=== PATIENT | female | born 1950 | race Caucasian/White ===

== ENCOUNTER 2021-05-01 22:34 | Inpatient (IN) | payer MEDICARE ==
[~2021-05-01] VITALS: Ht 157.5 cm; Wt 65.4 kg
[2021-05-02] MEDS ORDERED: CARDIZEM 30MG T30 MG PO (00:31)
[2021-05-02] MEDS ORDERED: BUMETANIDE1 MG PO (00:31)
[2021-05-02] MEDS ORDERED: ALBUTEROL2.5 MG/3 M INH (00:31)
[2021-05-02] MEDS ORDERED: ISOSORBIDE MONO30 MG PO (00:32)
[2021-05-02] MEDS ORDERED: PROTONIX 40 MG40 M1 PO (00:32)
[2021-05-02] MEDS ORDERED: SODIUM BICARBO650 MG PO (00:32)
[2021-05-02] MEDS ORDERED: METOPROLOL SUC100 MG PO (00:32)
[2021-05-02] MEDS ORDERED: WARFARIN SODIUM1 MG PO (00:33)
[2021-05-02] MEDS ORDERED: WARFARIN SODIUM2 MG PO (00:33)
[2021-05-02] MEDS ORDERED: ZAROXOLYN/DIUL2.5 MG PO (00:33)
[2021-05-02] MEDS ORDERED: LEVEMIR100 UNIT/1 SC (00:35)
[2021-05-02 02:36] LABS: HEMOGLOBIN 8.7 gm/dl (12.3-15.3); RED BLOOD COUNT 3.83 M/UL (4.00-5.10); WHITE BLOOD COUNT 8.9 K/UL (4.5-11.0)
[2021-05-03 03:23] LABS: RED BLOOD COUNT 3.45 M/UL (4.00-5.10); WHITE BLOOD COUNT 10.7 K/UL (4.5-11.0)
[2021-05-03 09:58] LABS: URINE CREATININE 44.1 mg/dL
[2021-05-03 10:13] LABS: HBSAG SCREEN Negative (Negative); HEP A AB, IGM Negative (Negative); HEP B CORE AB, IGM Negative (Negative); HEP C VIRUS AB 0.1 (0.0-0.9)
[2021-05-03] MEDS ORDERED: PROVENTIL HFA6.7 GM INH (19:57)
[2021-05-04 02:42] LABS: HEMOGLOBIN 7.6 gm/dl (12.3-15.3); RED BLOOD COUNT 3.4 M/UL (4.00-5.10); WHITE BLOOD COUNT 8.5 K/UL (4.5-11.0)
[2021-05-04 18:06] LABS: HEMOGLOBIN 7.8 gm/dl (12.3-15.3); RED BLOOD COUNT 3.45 M/UL (4.00-5.10)
--- NOTE | 2021-05-04 19:57 | NUR ---
PT CURRENTLY ON 2ND FLOOR GETTING DIALYSIS
[2021-05-05 05:26] LABS: HEMOGLOBIN 7.9 gm/dl (12.3-15.3); RED BLOOD COUNT 3.54 M/UL (4.00-5.10); WHITE BLOOD COUNT 9.2 K/UL (4.5-11.0)
[2021-05-06 03:56] LABS: HEMOGLOBIN 7.6 gm/dl (12.3-15.3); RED BLOOD COUNT 3.42 M/UL (4.00-5.10); WHITE BLOOD COUNT 7.5 K/UL (4.5-11.0)
[2021-05-07 05:11] LABS: HBSAG SCREEN Negative (Negative); HEP A AB, IGM Negative (Negative); HEP B CORE AB, IGM Negative (Negative); HEP C VIRUS AB 0.1 (0.0-0.9)
[2021-05-08 02:22] LABS: RED BLOOD COUNT 3.18 M/UL (4.00-5.10)
[2021-05-08] MEDS ORDERED: LOPRESSOR 50 MG50 MG PO (13:37)
[2021-05-08] MEDS ORDERED: WARFARIN SODIUM5 MG PO ×2 (13:37→13:46)
[2021-05-08] MEDS ORDERED: LEVOFLOXACIN500 MG PO (13:37)
[2021-05-08] MEDS ORDERED: HUMALOG 10100 UNITS/ SC (13:43)
[2021-05-08 16:45] LABS: HEMOGLOBIN 9.7 gm/dl (12.3-15.3); RED BLOOD COUNT 3.97 M/UL (4.00-5.10); WHITE BLOOD COUNT 10.4 K/UL (4.5-11.0)
== END 2021-05-08 18:30 | DRG 682 ==
LOC: PREINTOOBSV 22:56 → PROG CARE 23:58
PROVIDERS: Internal Medicine; Internal Medicine Nephrology; ADMIT Internal Medicine
DX: N17.9 Acute kidney failure, unspecified (principal); I50.23 Acute on chronic systolic (congestive) heart failure; J96.21 Acute and chronic respiratory failure with hypoxia; I48.20 Chronic atrial fibrillation, unspecified; E87.1 Hypo-osmolality and hyponatremia; N39.0 Urinary tract infection, site not specified; I13.2 Hypertensive heart and chronic kidney disease with heart failure and with stage 5 chronic kidney disease, or end stage renal disease; E87.2 Acidosis; E87.70 Fluid overload, unspecified; N18.6 End stage renal disease; E87.6 Hypokalemia; I25.10 Atherosclerotic heart disease of native coronary artery without angina pectoris; D64.89 Other specified anemias; E11.22 Type 2 diabetes mellitus with diabetic chronic kidney disease; I73.9 Peripheral vascular disease, unspecified; B96.1 Klebsiella pneumoniae [K. pneumoniae] as the cause of diseases classified elsewhere; E78.5 Hyperlipidemia, unspecified; Z20.822 Contact with and (suspected) exposure to COVID-19; Z83.3 Family history of diabetes mellitus; Z95.1 Presence of aortocoronary bypass graft; Z86.73 Personal history of transient ischemic attack (TIA), and cerebral infarction without residual deficits; Z79.4 Long term (current) use of insulin; Z82.49 Family history of ischemic heart disease and other diseases of the circulatory system; Z79.01 Long term (current) use of anticoagulants; Z87.891 Personal history of nicotine dependence
CPT/HCPCS: 36415; 36430; 71045; 80048; 80053; 80074; 81001; 82550; 82553; 82570; 82575; 82607; 82728; 82746; 82962; 83540; 83550; 83735; 83874; 83880; 84484; 85007; 85025; 85027; 85610; 85730; 86140; 86850; 86900; 86901; 86920; 87077; 87086; 87186; 90935; 90937; 93971; 94640; 94664; 94760; 97116-GP-CQ; 97163; 97165; 97530-GP-CQ; A6212; G0378; G0379; J0696; J1160; J1335; J1644; J1940; J2997; J7030; P9016; U0002

== ENCOUNTER 2021-05-15 13:53 | Emergency (ER) | payer MEDICARE ==
[~2021-05-15 13:53] MED LIST: ALBUTEROL2.5 MG/3 M INH; BUMETANIDE1 MG PO; CARDIZEM 30MG T30 MG PO; HUMALOG 10100 UNITS/ SC; ISOSORBIDE MONO30 MG PO; LEVEMIR100 UNIT/1 SC; LEVOFLOXACIN500 MG PO; LOPRESSOR 50 MG50 MG PO; METOPROLOL SUC100 MG PO; PROTONIX 40 MG40 M1 PO; PROVENTIL HFA6.7 GM INH; SODIUM BICARBO650 MG PO; WARFARIN SODIUM1 MG PO; WARFARIN SODIUM2 MG PO; WARFARIN SODIUM5 MG PO; ZAROXOLYN/DIUL2.5 MG PO
[2021-05-15 14:47] LABS: HEMOGLOBIN 8.7 gm/dl (12.3-15.3); RED BLOOD COUNT 3.66 M/UL (4.00-5.10); WHITE BLOOD COUNT 11.9 K/UL (4.5-11.0)
[2021-05-15] MEDS ORDERED: CARAFATE1 GM/10 ML PO (16:25)
== END 2021-05-15 19:09 | disposition home or self-care (01) ==
LOC: ER1 13:53
PROVIDERS: Preventive Medicine Occupational Medicine
DX: K20.90 Esophagitis, unspecified without bleeding (principal); E11.9 Type 2 diabetes mellitus without complications; K21.9 Gastro-esophageal reflux disease without esophagitis; Z86.73 Personal history of transient ischemic attack (TIA), and cerebral infarction without residual deficits
CPT/HCPCS: 36600; 71045; 80053; 81001; 82550; 82553; 82803; 83690; 83874; 83880; 84484; 85025; 85610; 85652; 85730; 86140; 87086; 93005; 99284

== ENCOUNTER 2021-05-28 13:05 | Emergency (ER) | payer MEDICARE ==
[~2021-05-28 13:05] MED LIST changes: +CARAFATE1 GM/10 ML PO
== END 2021-05-28 13:53 | disposition expired ==
LOC: ER1 13:05
PROVIDERS: Emergency Medicine
DX: I46.9 Cardiac arrest, cause unspecified (principal); Z99.2 Dependence on renal dialysis
CPT/HCPCS: 31500; 80053; 83605; 83735; 83880; 84100; 92950; 94762; 99291; J0171; J1265; J7070